=== PATIENT | female | born 1960 | race Caucasian/White ===

== ENCOUNTER 2018-11-24 22:15 | Inpatient (IN) | payer OTHER ==
[~2018-11-24] VITALS: Ht 170.2 cm; Wt 169.6 kg
[2018-11-24] MEDS ORDERED: DEXT 5%/0.45% NACL 1000ML 1,000 ML IV ONE (22:37)
[2018-11-24] MEDS ORDERED: DEXTROSE 50% WATER 50ML SYRINGE IV ONE (22:45)
[2018-11-24 23:13] LABS: HEMATOCRIT. 29.8 % (36.0-48.0); HEMOGLOBIN. 10.1 g/dL (12.0-16.0); MEAN CORPUSCULAR VOLUME 91.4 fL (81.0-99.0); MEAN PLATELET VOLUME 7.3 fl (7.4-10.4); PLATELET 294 x1000/uL (130-400); RED BLOOD CELL COUNT 3.25 mill/uL (4.2-5.4); RED CELL DISTRIBUTION WIDTH 14.6 % (11.6-14.6)
[2018-11-24 23:17] LABS: CHLORIDE 104 mEq/L (98-107)
[2018-11-24 23:24] LABS: PLATELET ESTIMATE NORMAL
[2018-11-25] MEDS ORDERED: SODIUM CHLORIDE 0.9% 1,000 ML IV ONE (02:03)
[2018-11-25] MEDS ORDERED: DEXT 10% WATER 1,000 ML IV SCH (04:23)
[2018-11-25] MEDS ORDERED: DEXTROSE 50% WATER 50ML SYRINGE IV SCH (04:30)
[2018-11-25 08:00] VITALS: BP 93/50
[2018-11-25] MEDS ORDERED: VITA1CAP MT (09:11)
[2018-11-25] MEDS ORDERED: METF-416 MT (09:11)
[2018-11-25] MEDS ORDERED: ASCO-339 MT (09:11)
[2018-11-25] MEDS ORDERED: ONDA4TAB5 MT (09:11)
[2018-11-25] MEDS ORDERED: ZINC220T MT (09:11)
[2018-11-25] MEDS ORDERED: OFLO5DRO3 BOTHEYE (09:11)
[2018-11-25] MEDS ORDERED: GLYB3TAB MT (09:11)
[2018-11-25] MEDS ORDERED: [UNRECOGNIZED DRUG - CODE] IJ (09:11)
[2018-11-25] MEDS ORDERED: LISI10TA5 MT (09:11)
[2018-11-25] MEDS ORDERED: CLON0.2T MT (09:11)
[2018-11-25] MEDS ORDERED: ASPI-1158 MT (09:11)
[2018-11-25] MEDS ORDERED: SODI650T MT (09:11)
[2018-11-25] MEDS ORDERED: HYDR-4001 MT (09:11)
[2018-11-25] MEDS ORDERED: ACET-2178 PO (09:11)
[2018-11-25 09:31] VITALS: BP 131/51
[2018-11-25] MEDS ORDERED: ACETAMINOPHEN 325MG TABLET PO PRN (10:00)
[2018-11-25] MEDS ORDERED: DEXTROSE 10% WATER 500 ML IV ONE (10:00)
[2018-11-25] MEDS ORDERED: ONDANSETRON HCL 4MG/2ML INJ IV PRN (10:00)
[2018-11-25 10:38] LABS: BG BASE EXCESS -10.9 mmol/L (-2.0-2.0); BG CARBOXYHEMOGLOBIN 0.5 % (0.5-1.5); BG DEOXYHEMOGLOBIN 8.4 % (0.0-5.0); BG FRACTION INSPIRED OXYGEN 21; BG HCO3 ACT 15.4 mmol/L (22.0-26.0); BG METHEMOGLOBIN 0.3 % (0.0-1.5); BG OXYGEN SATURATION 91.5 % (92.0-98.5); BG OXYHEMOGLOBIN 90.8 % (94.0-97.0); BG PCO2 35.7 mmHg (35.0-45.0); BG PH 7.252 (7.350-7.450); BG PO2 63.9 mmHg (75.0-100.0); BG SAMPLE SITE LEFT BRACHIAL; BG TOTAL HEMOGLOBIN 10.7 g/dL (12.0-18.0); BG VENT MODE ROOM AIR
[2018-11-25 10:56] VITALS: BP 140/50
[2018-11-25] MEDS ORDERED: DEXTROSE 50% WATER 50ML SYRINGE IV PRN (11:30)
[2018-11-25] MEDS: LEVOFLOXACIN 250MG PREMIX 50 ML IV SCH (11:51)
[2018-11-25] MEDS: GUAIFENESIN-DM 200MG-20MG/10ML UDC PO PRN ×2 (11:51→18:31)
[2018-11-25] MEDS: BLOOD SUGAR DIAGNOSTIC STRIP TEST SCH ×3 (11:51→20:53)
[2018-11-25 12:10] VITALS: BP 123/60
[2018-11-25 14:00] VITALS: BP 109/52
[2018-11-25] MEDS: DEXT 5%/0.9% NACL 1,000 ML IV SCH ×2 (14:02→20:53)
[2018-11-25] MEDS: CITRIC ACID/SODIUM CITRATE SOLN 30ML UDC PO SCH ×2 (14:02→16:27)
[2018-11-25] MEDS: ENOXAPARIN 150MG/ML SYR SUBCUT SCH (16:27)
[2018-11-25 18:00] VITALS: BP 118/79
[2018-11-25] MEDS ORDERED: DEXTROSE 10% WATER 500 ML IV SCH (20:00)
[2018-11-25 20:09] LABS: CLARITY URINE TURBID (CLEAR); COLOR URINE YELLOW (YELLOW); KETONES URINE NEGATIVE (NEGATIVE); LEUKOCYTE ESTERASE URINE 3+ (NEGATIVE); NITRITE URINE NEGATIVE (NEGATIVE); OCCULT BLOOD URINE 3+ (NEGATIVE); PH URINE 5.5 (4.5-8.0); PROTEIN URINE 2+ (NEGATIVE); SPECIFIC GRAVITY URINE 1.007 (1.005-1.030); UROBILINOGEN URINE 0.2 E.U./dL (0.2-1.0)
[2018-11-25 20:17] LABS: SODIUM URINE RANDOM 44 mEq/L
[2018-11-26] VITALS (11 sets, daily range): BP systolic 89–122; BP diastolic 30–67
[2018-11-26] MEDS: AZTREONAM 2 GM in DEXT 5% WATER 100 ML IV SCH ×2 (02:01→13:03)
[2018-11-26 07:07] LABS: INR 1.1; PROTHROMBIN TIME 11.4 sec (9.6-11.0)
[2018-11-26 07:25] LABS: HEMATOCRIT. 29.1 % (36.0-48.0); HEMOGLOBIN. 9.5 g/dL (12.0-16.0); MEAN CORPUSCULAR HEMOGLOBIN 30.3 pg (28.0-32.0); MEAN CORPUSCULAR VOLUME 92.9 fL (81.0-99.0); MEAN PLATELET VOLUME 7.8 fl (7.4-10.4); PLATELET 258 x1000/uL (130-400); RED BLOOD CELL COUNT 3.14 mill/uL (4.2-5.4); RED CELL DISTRIBUTION WIDTH 14.8 % (11.6-14.6)
[2018-11-26 08:10] LABS: PHOSPHORUS 5.5 mg/dL (2.5-4.9)
[2018-11-26] MEDS: BLOOD SUGAR DIAGNOSTIC STRIP TEST SCH ×4 (08:15→21:42)
[2018-11-26] MEDS: CITRIC ACID/SODIUM CITRATE SOLN 30ML UDC PO SCH ×3 (08:51→17:54)
[2018-11-26] MEDS: DEXT 5%/0.9% NACL 1,000 ML IV SCH (10:02)
[2018-11-26] MEDS ORDERED: SODIUM POLYSTYRENE SULFONATE 15 G/60 ML BOT PO NR (11:30)
[2018-11-26] MEDS ORDERED: DEXTROSE 50% WATER 50ML SYRINGE IV PRN (12:45)
[2018-11-26] MEDS: INSULIN LISPRO 100 UNITS/ML SUBCUT SCH ×3 (13:03→21:42)
[2018-11-26] MEDS: SODIUM CHLORIDE 0.9% 1,000 ML IV SCH (13:03)
[2018-11-26 13:27] LABS: PLATELET ESTIMATE NORMAL
[2018-11-26] MEDS ORDERED: NYSTATIN POWDER 15GM TOP SCH (14:30)
[2018-11-26] MEDS: ENOXAPARIN 150MG/ML SYR SUBCUT SCH (15:52)
[2018-11-26] MEDS ORDERED: BLOOD SUGAR DIAGNOSTIC STRIP TEST SCH (17:30)
[2018-11-26] MEDS: INSULIN GLARGINE UD 100 UNITS/ML SYR SUBCUT SCH (21:42)
[2018-11-27] VITALS (12 sets, daily range): BP systolic 91–147; BP diastolic 50–81
[2018-11-27] MEDS: SODIUM CHLORIDE 0.9% 1,000 ML IV SCH (00:06)
[2018-11-27] MEDS ORDERED: AZTREONAM 500MG in DEXTROSE 5% WATER 50ML IV SCH (01:00)
[2018-11-27 06:47] LABS: HEMATOCRIT. 28.5 % (36.0-48.0); HEMOGLOBIN. 9.5 g/dL (12.0-16.0); MEAN CORPUSCULAR HEMOGLOBIN 30.7 pg (28.0-32.0); MEAN CORPUSCULAR VOLUME 92.1 fL (81.0-99.0); MEAN PLATELET VOLUME 7.5 fl (7.4-10.4); PLATELET 244 x1000/uL (130-400); RED BLOOD CELL COUNT 3.09 mill/uL (4.2-5.4); RED CELL DISTRIBUTION WIDTH 14.6 % (11.6-14.6)
[2018-11-27 07:13] LABS: PHOSPHORUS 5.2 mg/dL (2.5-4.9)
[2018-11-27] MEDS: BLOOD SUGAR DIAGNOSTIC STRIP TEST SCH ×3 (07:42→17:25)
[2018-11-27] MEDS: INSULIN LISPRO 100 UNITS/ML SUBCUT SCH ×3 (07:42→17:51)
[2018-11-27] MEDS: CITRIC ACID/SODIUM CITRATE SOLN 30ML UDC PO SCH ×3 (09:23→17:25)
[2018-11-27] MEDS ORDERED: SODIUM CHLORIDE 0.45% 1,000 ML IV SCH (09:30)
[2018-11-27 09:59] LABS: PLATELET ESTIMATE NORMAL
[2018-11-27] MEDS: INSULIN GLARGINE UD 100 UNITS/ML SYR SUBCUT SCH (14:03)
[2018-11-27] MEDS: LEVOFLOXACIN 250MG PREMIX 50 ML IV SCH (14:06)
[2018-11-27] MEDS: ENOXAPARIN 150MG/ML SYR SUBCUT SCH (16:18)
== END 2018-11-27 21:24 | DRG 720 ==
LOC: ER 22:30 → 5EST 11-25 02:09 → EDBEDREQSVC 11-25 02:11 → EDBEDREQTM 11-25 02:11 → EDBEDREQ 11-25 02:11 → ENRESERV 11-25 03:19
PROVIDERS: ADMIT Internal Medicine; ATTEND Internal Medicine
DX: A41.9 Sepsis, unspecified organism (principal); G93.40 Encephalopathy, unspecified; E43 Unspecified severe protein-calorie malnutrition; D72.1 Eosinophilia; E11.22 Type 2 diabetes mellitus with diabetic chronic kidney disease; E11.649 Type 2 diabetes mellitus with hypoglycemia without coma; N17.9 Acute kidney failure, unspecified; I82.411 Acute embolism and thrombosis of right femoral vein; E87.2 Acidosis; N18.3 Chronic kidney disease, stage 3 (moderate); N13.8 Other obstructive and reflux uropathy; E66.01 Morbid (severe) obesity due to excess calories; E87.1 Hypo-osmolality and hyponatremia; N39.0 Urinary tract infection, site not specified; D63.8 Anemia in other chronic diseases classified elsewhere; I12.9 Hypertensive chronic kidney disease with stage 1 through stage 4 chronic kidney disease, or unspecified chronic kidney disease; I25.10 Atherosclerotic heart disease of native coronary artery without angina pectoris; K21.9 Gastro-esophageal reflux disease without esophagitis; L89.90 Pressure ulcer of unspecified site, unspecified stage; Z88.1 Allergy status to other antibiotic agents; Z88.0 Allergy status to penicillin; Z87.442 Personal history of urinary calculi; Z83.3 Family history of diabetes mellitus; Z82.49 Family history of ischemic heart disease and other diseases of the circulatory system; Z98.61 Coronary angioplasty status; Z68.43 Body mass index [BMI] 50.0-59.9, adult; Z79.899 Other long term (current) drug therapy; Z79.84 Long term (current) use of oral hypoglycemic drugs; Z79.4 Long term (current) use of insulin
CPT/HCPCS: 36415; 36600; 71045; 74176; 80048; 82375; 82533; 82805; 82962; 83036; 83605; 83735; 83935; 84100; 84134; 84145; 84300; 84443; 84484; 87077; 87186; 93005; 93970; 96365; 97162; 97166; 97530; 99291; A6261; J1650; J1815; J1956; J3490; J7030; J7042; J7060; A4315